=== PATIENT | female | born 1975 | race Caucasian/White ===

== ENCOUNTER → 2021-01-10 00:05 | Outpatient (CLI) | payer OTHER, SELFPAY ==
[2021-01-10 17:14] LABS: SARS-CoV-2 RNA PCR Negative
== END ==
PROVIDERS: PCP Registered Nurse; Visit Provider Internal Medicine Critical Care Medicine
DX: Z01.812 Encounter for preprocedural laboratory examination (principal); Z20.822 Contact with and (suspected) exposure to COVID-19
CPT/HCPCS: C9803; U0003; U0005

== ENCOUNTER 2021-01-12 09:17 | Outpatient (CLI) | payer OTHER, SELFPAY ==
--- NOTE | 2021-02-07 15:49 | WPDSLEEPSTUD ---
Sleep Study Date of Study: 01/12/21 Ordering Provider: Tyree Cabrera DO Interpreting Physician: Lacey Hung MD Sleep Study Type: Split Polysomnogram Height: 1.73 m Weight: 192.777 kg Body Mass Index: 64.6 Neck Circumference (inches): 17 [place]: 9 Reason for Sleep Study known TORRES, problems with mask fit *04/18/2019 Snap HST; AHI 12.9; baseline saturation 94%, lowest desaturation 82%, 90% of the test, 186 minutes of oximetry time spent below 88% saturation Sleep History Mallory Beaver is a 45-year-old female who has obstructive sleep apnea documented on home sleep study from 2019 wiht an AHI 12.9 with severe hypoxemia. She is having problems with mask fit and the pressure. Outpatient attempts to correct problems have not been successful. She has been using 15 cm CPAP. This is the first lab study she has had. she has constant loud snoring that others complain about. She occasionally awakens at night with heartburn, belching or coughing. She constantly awakens from sleep feeling short of breath. She has difficulty falling asleep, she wakes up throughout the night and she has a difficult time waking in the morning. There is a family history with her sister also having sleep apnea. She occasionally has trouble sleep with a cold. She constantly wakes up gasping for breath at night, constantly has breathing problems reported to her by others. She occasionally sweats excessively at night. She does not notice her heart pounding or beating irregularly at night. She constantly falls asleep during the day, occasionally involuntarily, never while driving. She does not have loss of muscle tone with strong emotion. She does not have daytime difficulties due to excessive sleepiness. She does not feel paralyzed on waking or falling asleep. She occasionally has vivid dreamlike scenes upon awakening or falling asleep. She constantly has nightmares, constantly remembers her dreams and has racing thoughts. She constantly feels sad, depressed and anxious. She denies muscular tension. She occasionally notices parts of her body jerking. She occasionally kicks at night. She does not have crawling or aching feelings in her legs. She constantly has leg pain at night. She does not have morning jaw pain. She constantly is bothered by pain during the day. She does not grind her teeth during sleep. She is not awakened by pain at night. She occasionally wakes up feeling stiff in the morning, with sore achy muscles and pain in her spine. She has headaches and insomnia. She takes Tums very often. Normal bedtime is between 3 and 4:00 a.m. waking up around 5-6 a.m.. She says it takes half the night for her to fall asleep. She wakes up once after going to sleep. This is to go urinate and reposition herself. She wakes in the morning between 9:10 a.m.. She takes naps. Sometimes a short nap is refreshing. She is usually drowsy in the morning. She never really feels better throughout the day. Habits: Tobacco half pack per day. Caffeine daily. No alcohol. [facility] Past Medical History Medical History (Updated 02/07/21 @ 16:12 by Lacey Hung MD) Allergic rhinitis with postnasal drip Arthritis Asthma Chronic cough Depression Henoch-Schonlein purpura Hypertension Morbid obesity Obstructive sleep apnea Tobacco abuse Family History Family History (Updated 07/17/18 @ 09:16 by DOCTOR UNKNOWN) Other Diabetes mellitus Family history of arthritis Social History Social History (Updated 02/07/21 @ 16:12 by Lacey Hung MD) Social History: cutting back now under 1 pack a day Smoking packs per day: 2 Smoking cigarettes per day: 40.0 Years smoked: 30 Smoking pack-years: 60.00 Smoking status: Heavy tobacco smoker Medications Medications: albuterol i 2.5 mg Q 6 hours p.r.n. wheezing albuterol inhaler 2 puffs q.4 hours p.r.n. amlodipine 10 mg a day Anoro Ellipta 1 puff daily aspirin EC 81 mg a
[2021-02-07 20:41] VITALS: BMI 64.6
== END 2021-01-12 09:18 | disposition home or self-care (01) ==
LOC: ANHCSM 09:19
PROVIDERS: PCP Registered Nurse
DX: G47.33 Obstructive sleep apnea (adult) (pediatric) (principal); E66.01 Morbid (severe) obesity due to excess calories; Z68.44 Body mass index [BMI] 60.0-69.9, adult; F17.210 Nicotine dependence, cigarettes, uncomplicated
CPT/HCPCS: 95811

== ENCOUNTER 2021-11-06 19:32 | Emergency (ER) | payer OTHER, SELFPAY ==
[2021-11-06 19:36] VITALS: BP 156/65; PULSE 90; RESP 16; TEMP 36.3; O2SAT 96
--- NOTE | 2021-11-06 19:40 | ED.SOB ---
HPI - SOB/Dyspnea General Chief Complaint: Shortness of Breath/Dyspnea Stated Complaint: Shortness of Breath Time Seen by Provider: 11/06/21 19:40 Source: patient and RN notes reviewed History of Present Illness HPI Narrative: Patient is a 46-year-old female who presents the urgent care with complaints of shortness of breath and cough. Patient states that she has been having this issue since 25 October. States that she has had virtual visits with both her certified meeting professional and her doctor. Her certified meeting professional advised her to get on steroids if her symptoms did not improve however he did not prescribe her the medication. Patient was placed on a Z-Willy on 30 October and has completed as of today. Patient denies of any fevers, nausea or chest pain. Patient states that she has inhalers and a nebulizer at home which she has been using with some improvement. Patient states her last nebulizer treatment was at approximately 2:30 PM. Patient has tested negative for COVID 3 times since symptom onset. No other acute complaints. No acute distress noted. Increased visible shortness of breath on exertion. Patient aware of the plan of care. Some parts of this dictation were generated by voice recognition software and may contain typographical and/or grammatical inaccuracies. Related Data Home Medications Medication Instructions Recorded Confirmed amlodipine 10 mg PO DAILY 11/06/21 11/06/21 bupropion HCl 150 mg PO QAM 11/06/21 11/06/21 cholecalciferol (vitamin D3) 125 mcg PO DAILY 11/06/21 11/06/21 [Vitamin D3] fluticasone furoate-vilanterol 1 inh INHALATION Q24H 11/06/21 11/06/21 [Breo Ellipta] hydrochlorothiazide 25 mg PO DAILY 11/06/21 11/06/21 losartan 50 mg PO DAILY 11/06/21 11/06/21 omeprazole 20 mg PO DAILY 11/06/21 11/06/21 Allergies Allergy/AdvReac Type Severity Reaction Status Date / Time No Known Allergies Allergy Verified 11/06/21 19:41 Review of Systems Review of Systems: CONSTITUTIONAL: Denies fever, chills, or sweats. EYES: Denies visual changes, redness, or discharge. ENT: Denies rhinorrhea, congestion, sore throat, or otalgia. CARDIOVASCULAR: Denies chest pain, palpitations, or edema. RESPIRATORY: Reports of cough and increased dyspnea GASTROINTESTINAL: Denies abdominal pain, nausea, vomiting, or diarrhea. GENITOURINARY: Denies dysuria or hematuria. SKIN: Denies rash or itching. MUSCULOSKELETAL: Denies back pain, joint pain, or myalgia. NEUROLOGIC: Denies headache, numbness, or weakness. \ All other systems reviewed are negative, except as documented in HPI. [facility] Past Medical History Medical History (Updated 11/06/21 @ 19:49 by RAE Abel) Allergic rhinitis with postnasal drip Arthritis Asthma Chronic cough Depression Henoch-Schonlein purpura Hypertension Morbid obesity Obstructive sleep apnea Tobacco abuse Family History Family History (Updated 07/17/18 @ 09:16 by DOCTOR UNKNOWN) Other Diabetes mellitus Family history of arthritis Social History Social History (Updated 02/07/21 @ 16:12 by Lacey Hung MD) Social History: cutting back now under 1 pack a day Smoking packs per day: 2 Smoking cigarettes per day: 40.0 Years smoked: 30 Smoking pack-years: 60.00 Smoking status: Heavy tobacco smoker Comments At the time of my signature, I reviewed and agree with the nursing past medical, surgical, social, and family history. There is no relevant family history pertinent to the patient complaint. Exam Narrative: GENERAL: This is a well-nourished, well-developed patient, in no apparent distress. Morbidly obese HEAD: normocephalic, atraumatic. EYES: PERRL. Sclera clear/white. Vision is grossly intact. EARS: External ears normal, auditory canals clear and without drainage, TMs normal without perforation. Hearing grossly intact. NOSE: External nose normal with no obvious nasal discharge, nares without redness, no rhinorrhea. THROAT: Mucous membranes moist, posteri
[2021-11-06] MEDS: predniSONE 20 MG TABLET 60 MG PO (19:51)
== END 2021-11-06 19:57 | disposition home or self-care (01) ==
PROVIDERS: Emergency Provider Nurse Practitioner Family; PCP Registered Nurse
DX: J44.9 Chronic obstructive pulmonary disease, unspecified (principal); M19.90 Unspecified osteoarthritis, unspecified site; I10 Essential (primary) hypertension; G47.33 Obstructive sleep apnea (adult) (pediatric); E66.01 Morbid (severe) obesity due to excess calories; Z68.42 Body mass index [BMI] 45.0-49.9, adult; F17.210 Nicotine dependence, cigarettes, uncomplicated
CPT/HCPCS: 99213; G0463; J7512

== ENCOUNTER 2021-11-15 18:26 | Emergency (ER) | payer OTHER, SELFPAY ==
[2021-11-15 18:29] VITALS: BP 175/69; PULSE 89; RESP 18; TEMP 36.6; O2SAT 95
--- NOTE | 2021-11-15 19:55 | PC.NURSE ---
PT DECIDED THAT SHE DOESN'T WANT TO BE SEEN ANY LONGER. ADVISED TO STAY BUT STATES HER RIDE IS COMING LAKISHA
--- NOTE | 2021-11-15 20:08 | PC.NURSE ---
pt walked out without being seen advised to stay
== END 2021-11-15 22:03 | disposition left against medical advice (07) ==
PROVIDERS: PCP Registered Nurse
DX: J18.9 Pneumonia, unspecified organism (principal)
CPT/HCPCS: 99199

== ENCOUNTER 2024-12-06 10:21 | Outpatient (CLI) | payer BC, SELFPAY ==
[2024-12-06 11:06] LABS: Hematocrit 47.5 % (37.0-47.0); Hemoglobin 15.2 g/dL (12.0-15.0); Mean Corpuscular Hemoglobin 29.7 pg (26-34); Mean Platelet Volume 9.3 fl (7.4-10.4); Platelet Count Result 301 k/mm3 (150-375); Red Blood Count 5.11 M/mm3 (4.2-5.4); Red Cell Distribution Width 14.7 % (11.5-14.5); White Blood Count 14.8 K/mm3 (4.5-10.0)
--- OUTSIDE RECORDS SUMMARY | 2024-12-06 11:12 | XMS_ITS | Encounter Summary ---
Author Organization [facility] Address [address] [place] [id number] Care Team Providers Care Supervisor Files Name Role Phone Frannie Grace Primary Care Provider [phone] Marii Hayes MD Unavailable [phone] Encounter Details Date Type Department Care Team (Late st Contact Info) Description 01/08/2022 ClariFIt Message Enc [facility] Family & Internal Medicine [facility] [address] [place] [phone] Frannie Grace APNP [address] [place] [address] Referral Social History Tobacco Use Types Packs/Day Years Used Date Smoking Tobacco: Every Day Cigarettes 1 30 Smokeless Tobacco: Never Comments:patient stated that her is smoking 15 cigarettes a day Alcohol Use Standard Drinks/Week Comments No 0 (1 standard drink = 0.6 oz pur e alcohol) AUDIT-C Answer Date Recorded Frequency of Alcohol Consumption Never 09/04/2018 Average Number of Drinks Not on file 018 Frequency of Binge Drinking Not on file 06/2018 PHQ-2 Answer Date Recorded PHQ-2 Score - If the patient scores above 3, please move on to questions 3-9 4 09/28/2021 Comments No Sex and Gender Information Value Date Recorded Sex Assigned at Female 12/01/2024 8:03 AM [employer]ACHINE Legal Sex Female 8:08 PM CDT Gender Identity Female 12/20/2021 12:05 PM [employer] Sexual Orientation Not on file COVID-19 Exposure Response Date Recorded In the last 10 days, have yo u been in contact with someone who was confirmed or suspected to have Coronavirus/COVID-19? No / Unsure 12/26/2021 8:36 AM [employer] MACHINE documented as of this encounter Plan of Treatment Upcoming Encounters Date Type Department Care Team (Late st Contact Info) Description 12/07/2024 8:30 AM [employer]ITCHING MACHINE Appointment [facility] [address] [place] [address] Tyree Cabrera DO [address] [facility] [address] [place] [phone] 12/10/2024 8:20 AM [employer] MACHINE Office Visit [facility] Family & Internal Medicine - [address] [phone] Frannie Grace APNP [address] [place] [phone] 01/10/2025 8:[address] [facility] [address] [place] [address] Tyree Cabrera DO [address] [facility] [address] [place] [phone] 07/01/2025 11:00 AM CDT Office Visit [facility] Multispecialty Care - [facility] [address] [facility] [address] [place] [phone] Tyree Cabrera DO [address] [facility] [address] [place] [phone] documented as of this encounter Visit Diagnoses Not on filedocumented in this encounter Additional Health Concerns Infection Onset Date Last Indicated Resolved Time COVID-19 Rule Out 04/26/2022 04/26/2022 05/03/2022 12:32 AM CDT Assessment Noted Time PHQ-9 Depression Total Score: 10 021 9:27 AM [employer] documented as of this encounter Care Teams Supervisor Files Relationship Specialty Start Date End Date Frannie Grace APNP [address] [place] [phone] PCP - General NURSE PRACTITIONER 08/31/18 Marii Hayes MD [address] [place] [id number] Christos Flaker Operator INTERVENTIONAL CARDIOLOGY 09/03/18 documented as of this encounter
--- OUTSIDE RECORDS SUMMARY | 2024-12-06 11:12 | XMS_ITS | Clinical Summary ---
Author Organization [facility] Address [address] [place] [address] Care Team Providers Care Oracle Forms Developer Name Role Phone Frannie Grace Primary Care Provider + Allergies No known active allergies Medications atenolol (TENORMIN) 50 mg tablet 07/21/2017 Active azithromycin (ZITHROMAX) 250 mg tablet 07/05/2017 Active BREO ELLIPTA 100-25 mcg/dose diskus inhaler 06/10/2017 Acti ve traMADol (ULTRAM) 50 mg tablet 08/07/2017 Active albuterol (PROVENTIL,VENTOL IN) 2.5 mg/0.5 mL solution for nebulization 2.5 mg 3 (three) times a day. Active amLODIPine (NORVASC) 10 mg tablet Take 10 mg by mouth daily. Active phentermine 15 mg capsule Take 15 mg by mouth every morning. Active meloxicam (MOBIC) 7.5 mg tablet Take 1 tablet (7.5 mg total) by mouth daily for 14 days 14 tablet 04/13/2024 Active Active Problems Problem Noted Date Diagnosed Date Morbid obesity 08/14/2017 BMI 50.0-59.9, adult 08/14/2017 Encounters Date Type Department Care Team Description 11/08/2024 7:18 AM UNISAW OPERATOR - 11/08/2024 11:59 PM UNISAW OPERATOR Hospital Encounter [address] [address] Elevated liver enzymes Discharge Disposition: Discharge to home or self care 09/27/2024 8:04 AM UNISAW OPERATOR - 09/27/2024 11:59 PM UNISAW OPERATOR Hospital Encounter [address] [address] Encounter for screening mammogram for malignant neoplasm of breast Discharge Disposition: Discharge to home or self care from Last 3 Months Surgical History Surgery Date Site/Laterality Comments COMBINED HYSTEROSCOPY DIAGNOSTIC / D&C TONSILLECTOMY Family History Medical History Relation Name Comments Arthritis Neg Hx Diabetes Neg Hx Heart disease Neg Hx Hypertension Neg Hx Social History Tobacco Use Types Packs/Day Years Used Date Smoking Tobacco: Every Day Cigarettes 1 30 Smokeless Tobacco: Current Alcohol Use Standard Drinks/Week Comments Yes 0 (1 standard drink = 0.6 oz pur e alcohol) Personal Safety Answer Date Recorded Have you ever been in or are you currently in a harmful physical or emotional relationship or is someone making you feel afraid or unsafe? Denies 04/13/2024 Comments No Sex and Gender Information Value Date Recorded Sex Assigned at Not on file Legal Sex Female 3:42 AM UNISAW OPERATOR Gender Identity Not on file Sexual Orientation Not on file Obstetrics History Para Term AB IAB SAB Ectopic Multiple Livin g Live Births 1 1 1 Date Outcome GA Total Labor Labor/2nd/3rd Weight Sex Type Anes PTL Meghana A1 A5 Name Clin Term Last Filed Vital Signs Vital Sign Reading Time Taken Comments Blood Pressure 169/77 04/13/2024 4:53 PM CDT Pulse 77 04/13/2024 4:53 PM CDT Temperature 36.4 C (97.6 F) 04/13/2024 4:53 PM CDT Respiratory Rate 16 04/13/2024 4:53 PM CDT Oxygen Saturation 96% 04/13/2024 4:53 PM CDT Inhaled Oxygen Concentration - - Weight 186 kg (410 lb) 04/13/2024 4:53 PM CDT Height 175.3 cm (5' 9 ) 04/13/2024 4:53 PM CDT Body Mass Index 60.55 04/13/2024 4:53 PM CDT Plan of Treatment Health Maintenance Due Date Last Done Comments Albumin Creatinine Ratio, Urine 1973 Cervical Cancer Screening 1973 Colon Cancer Screening-Colonoscopy 1973 Depression Screening 1973 Hemoglobin A1C 1973 Hepatitis C Screening 1973 eGFR 1973 Dilated Eye Exam 1973 Foot Exam 1973 Regular Well Visit/Exam 18-64 1991 Zoster Vaccine (1 of 2) 2023 Lung Cancer Screening 12/03/2023 09/04/2023 Influenza Vaccine (#1) 2024 Lipid Panel 09/10/2025 09/10/2024 Breast Cancer Screening-Mammogram 09/27/2025 024 DTaP/Tdap/Td Vaccine (5 - Td or Tdap) 05/17/2031 05/17/2021, 01/10/1994, 11/07/1993, Additional history exists Pneumococcal vaccine <65 Completed 08/14/2022 Procedures Procedure Name Priority Date/Time Associated Diagnosis Comments US ABDOMEN LIMITED Schedule Routine, Read Routine (OP Routine) 11/08/2024 7:59 AM UNISAW OPERATOR Elevated liver enzymes SCREENING MAMMOGRAM BILATERAL W AURELIANO Schedule Routine, Read Routine (OP Routine) 09/27/2024 8:28 AM UNISAW OPERATOR Encounter for screening mammogram for malignant neoplasm of breast CT LUNG CANCER SCREENING Schedule Routine, Read Routine (OP Routine) 09/04/2023 4:17 PM UNISAW OPERATOR Nicotine dependence, cigarettes, uncomplicated from Last 3 Months or Most Recently Relevant to Health Maintenance Results * US Abdomen Limited (11/08/2024 7:59 AM UNISAW OPERATOR) Anatomical Region Laterality Modality Abdomen N/A Ultrasound 11/08/2024 12:1 2 PM UNISAW OPERATOR Narrative 11/08/2024 12:18 PM UNISAW OPERATOR EXAM DESCRIPTION: US ABDOMEN LIMITED REASON FOR STUDY: elevated liver enzymes TECHNIQUE: Ultrasound of the right upper quadrant of the abdomen was performed with grayscale and color doppler. COMPARISON: None FINDINGS: PANCREAS: Pancreas is not well seen. LIVER/BILIARY: No intrahepatic ductal dilatation. Generalized increased echogenicity of the hepatic parenchyma. Poor definition of the portal triads. Hepatopetal flow is noted. Common bile duct measures 0.4 cm. GALLBLADDER: Gallstone in the gallbladder neck. Gallstone measures 1.61 cm. No gallbladder wall thickening. Gallbladder wall measures 0.24 cm. RIGHT KIDNEY: Right kidney measures 12.99 cm at its greatest length. No hydronephrosis of the right kidney. IMPRESSION: Fatty infiltration of the liver. Gallstone in the gallbladder neck. No gallbladder wall thickening. No biliary ductal dilatation. THIS IS AN ELECTRONICALLY VERIFIED FINAL REPORT 11/08/2024 12:18 PM - Electronically signed by Roberth MENDOZA: KELLY Report ID: [id number] Reading Location: [id number] Procedure Note MichelleRoberth, DO - 11/08/2024 EXAM DESCRIPTION: US ABDOMEN LIMITED REASON FOR STUDY: elevated liver enzymes TECHNIQUE: Ultrasound of the right upper quadrant of the abdomen wasperformed with grayscale and color doppler. COMPARISON: None FINDINGS: PANCREAS: Pancreas is not well seen. LIVER/BILIARY: No intrahepatic ductal dilatation. Generalized increased echogenicity of the hepatic parenchyma. Poor definition of the portaltriads. Hepatopetal flow is noted. Common bile duct measures 0.4 cm. GALLBLADDER: Gallstone in the gallbladder neck. Gallstone measures 1.61cm. No gallbladder wall thickening. Gallbladder wall measures 0.24 cm. RIGHT KIDNEY: Right kidney measures 12.99 cm at its greatest length. No hydronephrosis of the right kidney. IMPRESSION: Fatty infiltration of the liver. Gallstone in the gallbladder neck. No gallbladder wall thickening. Nobiliary ductal dilatation. THIS IS AN ELECTRONICALLY VERIFIED FINAL REPORT 11/08/2024 12:18 PM - Electronically signed by Roberth MENDOZA: KELLY Report ID: [id number] Reading Location: [id number] Frannie LINDER [facility] [place] [facility]ED[facility] Final Result * Screening Mammogram Bilateral W Aureliano (09/27/2024 8:28 AM UNISAW OPERATOR) Anatomical Region Laterality Modality Breast Bilateral Mammography 09/27/2024 8:55 AM UNISAW OPERATOR Impressions 09/27/2024 8:55 AM UNISAW OPERATOR No evidence of malignancy in either breast. FINAL ASSESSMENT: BI-RADS Category 1: Negative. RECOMMENDATION: Recommend return for annual screening mammogram in 12 months. Electronically signed by: Daron Palacio M.D. Narrative 09/27/2024 8:55 AM UNISAW OPERATOR EXAMINATION: BILATERAL SCREENING MAMMOGRAM COMPARISON: None available, baseline mammogram TECHNIQUE: Full-field 2D and digital breast tomosynthesis (DBT) images were obtained. CAD was utilized. BREAST PARENCHYMAL COMPOSITION: The breasts are almost entirely fatty. FINDINGS: There is no suspicious mass, calcification, or distortion in either breast. Frannie LINDER IMG MAMMO PROCEDURES [facility] al Result * CT Lung Cancer Screening (09/04/2023 4:17 PM UNISAW OPERATOR) Anatomical Region Laterality Modality Chest N/A Computed Tomogra phy 09/05/2023 6:45 AM UNISAW OPERATOR Narrative 09/05/2023 6:57 AM UNISAW OPERATOR EXAM DESCRIPTION: CT LUNG CANCER SCREENING REASON FOR STUDY: Screening CT of the chest in a current smoker with a 30 pack year smoking history. Additional history: Intermittent chest congestion.. TECHNIQUE: Low dose CT scan of the chest was performed without intravenous contrast using helical scanning technique. The exam extends from the lung apices through the lung bases. Automatic exposure control was used as a dose optimization technique. NOTE: This study was performed for the specific purposes of lung cancer screening and is not an alternative to diagnostic chest CT. RADIATION DOSE: CT dose index volume (CTDIvol) = 2.34 mGy COMPARISON: None FINDINGS: SMOKING RELATED LUNG DISEASE: There is a background of mild pulmonary emphysema. Evaluation limited due to a combination of body habitus and low-dose technique. There is mild central bronchial wall thickening noted as can be seen in the setting of chronic bronchitis in current smokers. Mild subpleural reticulation is present. LUNG NODULES: 4 mm nodule right apex series 2, image 21. Juxtapleural 5 mm nodule posterior right upper lobe image 40. Juxtapleural 9 mm nodule anterior right lower lobe image 24. 7 mm nodule posterior right costophrenic sulcus image 255. Peribronchovascular 8 mm nodule central left upper lobe image 75. Additional tiny 1-3 mm bilateral pulmonary nodules. CORONARY ARTERY CALCIFICATION: Present OTHER: There is subsegmental scarring and atelectasis. No pneumonic consolidation. No effusion or pneumothorax. Central airways are patent. Evaluation at the thoracic inlet very limited due to significant beam hardening artifact. There is a borderline enlarged right paratracheal node measuring 1 cm short axis on image number 73 there is a node in the precarinal space measuring 1.3 cm short axis. Evaluation of the kaylah very limited on this examination. There is thickening of the mid and distal esophagus. Consider reflux or esophagitis. The heart is normal in size without pericardial effusion. Calcification at the mitral annulus. There is no thoracic aortic aneurysm. The main pulmonary trunk is enlarged as can be seen with pulmonary artery hypertension. Evaluation of the axillary regions very limited on this study. Included portion of the chest wall is grossly unremarkable. The abdominal compartment is significantly limited in evaluation due to artifact. No definitive abnormality. There is thoracic spondylosis and multilevel degenerative disc disease. There is wedging of the T11 vertebral body, which is chronic IMPRESSION: 1. Bilateral pulmonary nodules including juxtapleural 9 and 7 mm nodules in the right lower lobe and an 8 mm nodule in the peribronchovascular aspect of the central left upper lobe. Three-month follow-up LD CT is recommended. 2. Mild pulmonary emphysema. 3. Mildly enlarged precarinal node and borderline enlarged paratracheal node, reactive versus neoplastic. 4. Coronary artery calcifications. 5. Portions of the field of view are nearly nondiagnostic given the degree of artifact present as a result of a combination of body habitus and low-dose technique Lung-RADS category 4A: Suspicious. Recommendation: Low dose CT of chest in 3 months. THIS IS AN ELECTRONICALLY VERIFIED FINAL REPORT 09/05/2023 6:57 AM - Electronically signed by Reanna Chacon M.D. TW: EFREM Report ID: [id number] Reading Location: [id number] Procedure Note Reanna Chacon MD - 09/05/2023 EXAM DESCRIPTION: CT LUNG CANCER SCREENING REASON FOR STUDY: Screening CT of the chest in a current smoker with a30 pack year smoking history. Additional history: Intermittent chestcongestion.. TECHNIQUE: Low dose CT scan of the chest was performed without intravenous contrast using helical scanning technique. The exam extends from the lung apices through the lung bases. Automatic exposure control was used as adose optimization technique. NOTE: This study was performed for the specific purposes of lung cancer screening and is not an alternative to diagnostic chest CT. RADIATION DOSE: CT dose index volume (CTDIvol) = 2.34 mGy COMPARISON: None FINDINGS: SMOKING RELATED LUNG DISEASE: There is a background of mild pulmonary emphysema. Evaluation limited due to a combination of body habitus and low-dose technique. There is mild central bronchial wall thickening notedas can be seen in the setting of chronic bronchitis in current smokers. Mild subpleural reticulation is present. LUNG NODULES: 4 mm nodule right apex series 2, image 21. Juxtapleural 5 mm nodule posterior right upper lobe image 40.Juxtapleural 9 mm nodule anterior right lower lobe image 24. 7 mm nodule posterior right costophrenic sulcus image 255. Peribronchovascular 8 mm nodule central left upper lobe image 75. Additional tiny 1-3 mm bilateral pulmonary nodules. CORONARY ARTERY CALCIFICATION: Present OTHER: There is subsegmental scarring and atelectasis. No pneumonic consolidation. No effusion or pneumothorax. Central airways are patent. Evaluation at the thoracic inlet very limited due to significant beam hardening artifact. There is a borderline enlarged right paratrachealnode measuring 1 cm short axis on image number 73 there is a node in theprecarinal space measuring 1.3 cm short axis. Evaluation of the kaylah very limited on this examination. There is thickening of the mid and distal esophagus. Consider reflux or esophagitis. The heart is normal in size without pericardial effusion. Calcification at the mitral annulus. There is no thoracic aortic aneurysm. The main pulmonary trunk is enlarged as can beseen with pulmonary artery hypertension. Evaluation of the axillary regionsvery limited on this study. Included portion of the chest wall is grossly unremarkable. The abdominal compartment is significantly limited in evaluation due to artifact. No definitive abnormality. There is thoracic spondylosis and multilevel degenerative disc disease. There is wedging ofthe T11 vertebral body, which is chronic IMPRESSION: 1. Bilateral pulmonary nodules including juxtapleural 9 and 7 mm nodulesin the right lower lobe and an 8 mm nodule in the peribronchovascular aspectof the central left upper lobe. Three-month follow-up LD CT is recommended. 2. Mild pulmonary emphysema. 3. Mildly enlarged precarinal node and borderline enlarged paratracheal node, reactive versus neoplastic. 4. Coronary artery calcifications. 5. Portions of the field of view are nearly nondiagnostic given thedegree of artifact present as a result of a combination of body habitus andlow-dose technique Lung-RADS category 4A: Suspicious. Recommendation: Low dose CT of chest in 3 months. THIS IS AN ELECTRONICALLY VERIFIED FINAL REPORT 09/05/2023 6:57 AM - Electronically signed by Reanna Chacon M.D. TW: EFREM Report ID: [id number] Reading Location: [place] [address] Tyree Cabrera DO [facility] [place]ED[place] Final Result from Last 3 Months or Most Recently Relevant to Health Maintenance Insurance [facility] [employer] CHOICE Care Teams Oracle Forms Developer Relationship Specialty Start Date End Date Frannie Grace PA [address] [place] [id number] PCP - General Nurse Practitioner 03/11/24
--- OUTSIDE RECORDS SUMMARY | 2024-12-06 11:12 | XMS_ITS | Encounter Summary ---
Author Organization [facility] Address [address] [place] [address] Care Team Providers Care Commissioner Conservation Of Resources Name Role Phone Frannie Grace Primary Care Provider [phone] Marii Hayes MD Unavailable [phone] Encounter Details Date Type Department Care Team (Late st Contact Info) Description 01/08/2022 LocalEatst Message Enc [facility] Medical Group Family & Internal Medicine [facility] [address] [place] [address] Frannie Grace APNP [address] [place] [address] Handicap plaque Social History Tobacco Use Types Packs/Day Years [...] Sex Assigned at Female 12/01/2024 8:03 AM MANAGER CAFE Legal Sex Female 8:08 PM CDT Gender Identity Female 12/20/2021 12:05 PM MANAGER CAFE Sexual Orientation Not on file COVID-19 Exposure Response Date Recorded In the last 10 days, have yo u been in contact with someone who was confirmed or suspected to have Coronavirus/COVID-19? No / Unsure 12/26/2021 8:36 AM MANAGER CAFE documented as of this encounter Plan of Treatment Upcoming Encounters Date Type Department Care Team (Late st Contact Info) Description 12/07/2024 8:30 AM MANAGER CAFE Appointment [facility] [address] [place] [address] Tyree Cabrera DO [address] [facility] [address] [place] [address] 12/10/2024 8:20 AM MANAGER CAFE Office Visit [facility] Family & Internal Medicine - [address] [address] Frannie Grace APNP [address] [place] [address] 01/10/2025 8:30 AM CDT Appointment [facility] [address] [place] [address] Tyree Cabrera DO [address] [facility] [address] [place] [address] 07/01/2025 11:00 AM CDT Office Visit [facility] Multispecialty Care - [facility] [address] [place] [phone] Tyree Cabrera DO [address] [facility] [address] [place] [address] documented as of this encounter Visit Diagnoses Not on filedocumented in this encounter Additional Health Concerns Infection Onset Date Last Indicated Resolved Time COVID-19 Rule Out 04/26/2022 04/26/2022 05/03/2022 12:32 AM CDT Assessment Noted Time PHQ-9 Depression Total Score: 10 021 9:27 AM MANAGER CAFE documented as of this encounter Care Teams Commissioner Conservation Of Resources Relationship Specialty Start Date End Date Frannie Grace APNP [address] [place] [address] PCP - General NURSE PRACTITIONER 08/31/18 Marii Hayes MD [address] [place] [phone] Christos Physician Credentialing Specialist INTERVENTIONAL CARDIOLOGY 09/03/18 documented as of this encounter
--- OUTSIDE RECORDS SUMMARY | 2024-12-06 11:12 | XMS_ITS | Encounter Summary ---
Author Organization [facility] Address [address] [place] [address] Care Team Providers Care Refrigeration Systems Installer Name Role Phone Frannie Grace Ignacia MTZ Primary Care Provider Marii Hayes MD Unavailable [phone] Encounter Details Date Type Department Care Team (Late st Contact Info) Description 01/08/2022 [place] Message Enc [facility] Medical [facility] Multispecialty Care - [facility] [address] [place] [phone] Tyree Cabrera DO [address] [place], [place] [phone] Bipap Social History Tobacco Use Types Packs/Day Years [...] Sex Assigned at Female 12/01/2024 8:03 AM DESK LIEUTENANT Legal Sex Female 8:08 PM CDT Gender Identity Female 12/20/2021 12:05 PM DESK LIEUTENANT Sexual Orientation Not on file COVID-19 Exposure Response Date Recorded In the last 10 days, have yo u been in contact with someone who was confirmed or suspected to have Coronavirus/COVID-19? No / Unsure 12/26/2021 8:36 AM DESK LIEUTENANT documented as of this encounter Plan of Treatment Upcoming Encounters Date Type Department Care Team (Late st Contact Info) Description 12/07/2024 8:30 AM DESK LIEUTENANT Appointment [facility] [address] [place] [address] Tyree Cabrera DO [address] [facility] [address] [place] [address] 12/10/2024 8:20 AM DESK LIEUTENANT Office Visit [facility] Family & Internal Medicine - [address] [address] Frannie Grace APNP [address] [place] [address] 01/10/2025 8:30 AM CDT Appointment [facility] [address] [place] [address] Tyree Cabrera DO [address] [facility] [address] [place] [address] 07/01/2025 11:00 AM CDT Office Visit [facility] Multispecialty Care - [address] [place] [address] Tyree Cabrera DO [address] [facility] [address] [place] [address] documented as of this encounter Visit Diagnoses Not on filedocumented in this encounter Additional Health Concerns Infection Onset Date Last Indicated Resolved Time COVID-19 Rule Out 04/26/2022 04/26/2022 05/03/2022 12:32 AM CDT Assessment Noted Time PHQ-9 Depression Total Score: 10 021 9:27 AM DESK LIEUTENANT documented as of this encounter Care Teams Refrigeration Systems Installer Relationship Specialty Start Date End Date Frannie Grace APNP [address] [place] [address] PCP - General NURSE PRACTITIONER 08/31/18 Marii Hayes MD [address] [place] [address] Christos Obedience Trainer INTERVENTIONAL CARDIOLOGY 09/03/18 documented as of this encounter
--- OUTSIDE RECORDS SUMMARY | 2024-12-06 11:12 | XMS_ITS | Encounter Summary ---
Author Organization [facility] Address [address] [place] [address] Care Team Providers Care Research Software Engineer Name Role Phone Frannie Grace Ignacia MTZ Primary Care Provider Marii Hayes MD Unavailable [phone] Encounter Details Date Type Department Care Team (Late st Contact Info) Description 01/08/2022 [place] Recordst Message Enc [facility] Medical Group Multispecialty Care - [facility] [address] [place] [address] Tyree Cabrera DO [address] [facility] [address] [place], [place] [phone] Faustina smith Social History Tobacco Use Types Packs/Day Years [...] Sex Assigned at Female 12/01/2024 8:03 AM DIRECTOR GEOTHERMAL OPERATIONS Legal Sex Female 8:08 PM CDT Gender Identity Female 12/20/2021 12:05 PM DIRECTOR GEOTHERMAL OPERATIONS Sexual Orientation Not on file COVID-19 Exposure Response Date Recorded In the last 10 days, have yo u been in contact with someone who was confirmed or suspected to have Coronavirus/COVID-19? No / Unsure 12/26/2021 8:36 AM DIRECTOR GEOTHERMAL OPERATIONS documented as of this encounter Plan of Treatment Upcoming Encounters Date Type Department Care Team (Late st Contact Info) Description 12/07/2024 8:30 AM DIRECTOR GEOTHERMAL OPERATIONS Appointment [facility] [address] [place] [address] Tyree Cabrera DO [address] [facility] [address] [place] [address] 12/10/2024 8:20 AM DIRECTOR GEOTHERMAL OPERATIONS Office Visit [facility] Family & Internal Medicine - [address] [phone] Frannie Grace, SMITH [address] [place] [address] 01/10/2025 8:30 AM CDT Appointment [facility] Day [facility] [address] [place] [address] Tyree Cabrera [address] [facility] [address] [place] [address] 07/01/2025 11:00 AM CDT Office Visit [facility] Multispecialty Care - [address] [place] [address] Tyree Cabrera DO [address] [facility] [address] [place] [address] documented as of this encounter Visit Diagnoses Not on filedocumented in this encounter Additional Health Concerns Infection Onset Date Last Indicated Resolved Time COVID-19 Rule Out 04/26/2022 04/26/2022 05/03/2022 12:32 AM CDT Assessment Noted Time PHQ-9 Depression Total Score: 10 021 9:27 AM DIRECTOR GEOTHERMAL OPERATIONS documented as of this encounter Care Teams Research Software Engineer Relationship Specialty Start Date End Date Frannie Grace APNP [address] [place] [address] PCP - General NURSE PRACTITIONER 08/31/18 Marii Hayes MD [address] [place] [address] Christos Play Reader INTERVENTIONAL CARDIOLOGY 09/03/18 documented as of this encounter
--- OUTSIDE RECORDS SUMMARY | 2024-12-06 11:12 | XMS_ITS | Encounter Summary ---
Author Organization [facility] Address [address] [place] [address] Care Team Providers Care Die Finisher Forging Name Role Phone Frannie Grace Ignacia MTZ Primary Care Provider Marii Hayes MD Unavailable [phone] Encounter Details Date Type Department Care Team (Late st Contact Info) Description 01/20/2024 Therapy Plan [facility] [address] [place], [place] [id number] Tyree Cabrera DO [address] [facility] [address] [place] [address] Social History Tobacco Use Types Packs/Day Years Used Date Smoking Tobacco: Every Day Cigarettes 0.5 31 Smokeless Tobacco: Never Comments:Provider to anger control counselor Alcohol Use Standard Drinks/Week Comments No 0 (1 standard drink = 0.6 oz pur e alcohol) AUDIT-C Answer Date Recorded Frequency of Alcohol Consumption Never 09/04/2018 Average Number of Drinks Not on file 018 Frequency of Binge Drinking Not on file 06/2018 PHQ-2 Answer Date Recorded Patient Health Questionnaire-2 Score 0 12/11/2023 Comments No Sex and Gender Information Value Date Recorded Sex Assigned at Female 12/01/2024 8:03 AM BUTTON SEWING MACHINE OPERATOR Legal Sex Female 8:08 PM CDT Gender Identity Female 12/20/2021 12:05 PM BUTTON SEWING MACHINE OPERATOR Sexual Orientation Not on file 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 on file Not on file documented as of this encounter Plan of Treatment Upcoming Encounters Date Type Department Care Team (Late st Contact Info) Description 12/07/2024 8:30 AM BUTTON SEWING MACHINE OPERATOR Appointment [facility] [address] [place] [address] Tyree Cabrera DO [facility] [address] [place] [address] 12/10/2024 8:20 AM BUTTON SEWING MACHINE OPERATOR Office Visit [facility] Medical [facility] Family & Internal Medicine - [address] [address] Frannie Grace APNP [address] [place] [address] 01/10/2025 8:30 AM CDT Appointment [facility] [address] [place] [address] Tyree Cabrera DO [address] [facility] [address] [place] [address] 07/01/2025 11:00 AM CDT Office Visit [facility] Multispecialty Care - [address] [place] [address] Tyree Cabrera DO 3 [facility] [address] [place] [address] documented as of this encounter Visit Diagnoses Diagnosis Moderate persistent asthma without complication (HHS/HCC)- Primary Unspecified asthma documented in this encounter Additional Health Concerns Assessment Noted Time PHQ-9 Depression Total Score: 12 023 12:10 PM BUTTON SEWING MACHINE OPERATOR documented as of this encounter Care Teams Die Finisher Forging Relationship Specialty Start Date End Date Frannie Grace APNP [address] [place] [address] PCP - General NURSE PRACTITIONER 08/31/18 Marii Hayes MD [address] [place] [address] Christos Surface Grinding Machine Hand INTERVENTIONAL CARDIOLOGY 09/03/18 documented as of this encounter
--- OUTSIDE RECORDS SUMMARY | 2024-12-06 11:12 | XMS_ITS | Encounter Summary ---
Author Organization [facility] Address [address] [place] [address] Care Team Providers Care Inspector And Tester Name Role Phone Frannie Grace Primary Care Provider Marii Hayes MD Unavailable [phone] Encounter Details Date Type Department Care Team (Late st Contact Info) Description 04/28/2019 Medication Management [facility] Family & Internal Medicine [facility] [address] [place] [address] Frannie Grace APNP [address] [place] [address] Social History Tobacco Use Types Packs/Day Years Used Date Smoking Tobacco: Every Day Smokeless Tobacco: Never Alcohol Use Standard Drinks/Week Comments No 0 (1 standard drink = 0.6 oz pur e alcohol) AUDIT-C Answer Date Recorded Frequency of Alcohol Consumption Never 09/04/2018 Average Number of Drinks Not on file 018 Frequency of Binge Drinking Not on file 06/2018 Comments Unknown Sex and Gender Information Value Date Recorded Sex Assigned at Female 12/01/2024 8:03 AM TOW FEEDER Legal Sex Female 8:08 PM CDT Gender Identity Female 12/20/2021 12:05 PM TOW FEEDER Sexual Orientation Not on file documented as of this encounter Plan of Treatment Upcoming Encounters Date Type Department Care Team (Late st Contact Info) Description 12/07/2024 8:30 AM TOW FEEDER Appointment [facility] [address] [place] [address] Tyree Cabrera DO 3 [facility] [address] [place] [address] 12/10/2024 8:20 AM TOW FEEDER Office Visit [facility] Family & Internal Medicine - [address] [address] Frannie Grace, SMITH [address] [place] [address] 01/10/2025 8:30 AM CDT Appointment [facility] [address] [place] [address] Tyree Cabrera DO 3 [facility] [address] [place] [address] 07/01/2025 11:00 AM CDT Office Visit [facility] Multispecialty Care - [facility] 3 [facility] [address] [place] [address] Tyree Cabrera DO 3 [facility] [address] [place] [address] documented as of this encounter Visit Diagnoses Not on filedocumented in this encounter Additional Health Concerns Infection Onset Date Last Indicated Resolved Time COVID-19 Rule Out 11/03/2020 11/03/2020 11/04/2020 2:52 PM TOW FEEDER COVID-19 Rule Out 10/29/2021 10/29/2021 10/30/2021 1:38 AM TOW FEEDER COVID-19 Rule Out 04/26/2022 04/26/2022 05/03/2022 12:32 AM CDT documented as of this encounter Care Teams Inspector And Tester Relationship Specialty Start Date End Date Frannie Grace APNP [address] [place] [address] PCP - General NURSE PRACTITIONER 08/31/18 Marii Hayes MD [address] [place] [address] Christos Summer Camp Counselor INTERVENTIONAL CARDIOLOGY 09/03/18 documented as of this encounter
--- OUTSIDE RECORDS SUMMARY | 2024-12-06 11:12 | XMS_ITS | Encounter Summary ---
Author Organization [facility] Address Formerly [facility] [place] [address] Care Team Providers Care Aviation Safety Equipment Technician Name Role Phone Frannie Grace Ignacia MTZ Primary Care Provider Marii Hayes MD Unavailable [phone] Encounter Details Date Type Department Care Team (Latest Contact Info) Description 06/18/[address] [facility] Multispecialty Care - [facility] [address] [facility] [address] [place] [address] Tyree Cabrera DO [address] [facility] [address] [place], [place] [id number] Having trouble getting medication Social History Tobacco Use Types Packs/Day Years Used Date Smoking Tobacco: Every Day Cigarettes 1 30 Smokeless Tobacco: Never Comments:Provider to patient financial counselor Alcohol Use Standard Drinks/Week Comments No 0 (1 standard drink = 0.6 oz pur e alcohol) AUDIT-C Answer Date Recorded Frequency of Alcohol Consumption Never 09/04/2018 Average Number of Drinks Not on file 018 Frequency of Binge Drinking Not on file 06/2018 PHQ-2 Answer Date Recorded Patient Health Questionnaire-2 Score 2 12/11/2022 Comments No Sex and Gender Information Value Date Recorded Sex Assigned at Female 12/01/2024 8:03 AM CUTTER DOWN Legal Sex Female 8:08 PM CDT Gender Identity Female 12/20/2021 12:05 PM CUTTER DOWN Sexual Orientation Not on file 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 on file Not on file documented as of this encounter Plan of Treatment Upcoming Encounters Date Type Department Care Team (Late st Contact Info) Description 12/07/2024 8:30 AM CUTTER DOWN Appointment [facility] [address] [place] [address] Tyree Cabrera DO [address] [facility] [address] [place] [address] 12/10/2024 8:20 AM CUTTER DOWN Office Visit [facility] Family & Internal Medicine - [address] [address] Frannie Grace APNP [address] [place] [address] 01/10/2025 8:30 AM CDT Appointment [facility] [address] [place] [address] Tyree Cabrera DO [address] [facility] [address] [place] [address] 07/01/2025 11:00 AM CDT Office Visit [facility] Multispecialty Care - [facility] [address] [facility] [address] [place] [phone] Tyree Cabrera DO [address] [facility] [address] [place] [address] documented as of this encounter Visit Diagnoses Not on filedocumented in this encounter Additional Health Concerns Assessment Noted Time PHQ-9 Depression Total Score: 12 023 12:10 PM CUTTER DOWN documented as of this encounter Care Teams Aviation Safety Equipment Technician Relationship Specialty Start Date End Date Frannie Grace APNP [address] [place] [address] PCP - General NURSE PRACTITIONER 08/31/18 Marii Hayes MD [address] [place] [id number] Christos Vat Washer INTERVENTIONAL CARDIOLOGY 09/03/18 documented as of this encounter
--- OUTSIDE RECORDS SUMMARY | 2024-12-06 11:12 | XMS_ITS | Clinical Summary ---
Author Organization [facility] Address [address] [place] [address] Care Team Providers Care Shrimping Boat Captain Name Role Phone Lesly, Frannie Ignacia MTZ Primary Care Provider [phone] Marii Hayes MD Unavailable [phone] Allergies No known active allergies Medications CPAP MACHINEIndication s:pt states that she uses a bipap Indications: pt states that she uses a bipap Active ferrous sulfate, 65 mg elemental, 325 (65 FE) MG tablet Take 1 tablet (325 mg total) by mouth daily with breakfast. Active polycarbophil 625 MG tablet Take 1 tablet (625 mg total) by mouth daily. Active vitamin C 1000 MG tablet Take 1 tablet (1,000 mg total) by mouth daily. Active EPINEPHrine (EPIPEN 2-RUTHIE) 0.3 MG/0.3ML injectionIndicati ons:Moderate persistent asthma without complication (HHS/HCC) Inject 0.3 mLs (0.3 mg total) into the muscle as needed for Anaphylaxis. 1 each 022 Active albuterol sulfate HFA (PROAIR HFA) 108 (90 Base) MCG/ACT inhalerIndication s:Moderate persistent asthma without complication (HHS/HCC) Inhale 2 puffs into the lungs every 4 (four) hours as needed. 18 g 2 023 Active albuterol (ACCUNEB) 1.25 MG/3ML nebulizer solutionIndicatio ns:Moderate persistent asthma without complication (HHS/HCC) Take 3 mLs (1.25 mg total) by nebulization every 6 (six) hours as needed for Wheezing. 720 mL 2 023 Active fluticasone propionate (FLONASE) 50 MCG/ACT nasal sprayIndications: Allergic rhinitis due to pollen, unspecified seasonality 1 spray by Nasal route daily. 16 g 6 023 Active benralizumab (FASENRA) 30 MG/ML Solution Prefilled Syringe injectionIndicati ons:Moderate persistent asthma without complication (HHS/HCC) Inject 1 mL (30 mg total) into the skin Once every eight weeks. 0.28 mL 11 024 Active traMADol (ULTRAM) 50 MG tabletIndications :Chronic Pain Take 1 tablet (50 mg total) by mouth every 6 (six) hours as needed for Pain. Indications: Chronic Pain 30 tablet 024 Active montelukast (SINGULAIR) 10 MG tabletIndications :Moderate persistent asthma without complication (HHS/HCC),Simple chronic bronchitis (CMS/HCC HHS/HCC),Allergic rhinitis due to pollen, unspecified seasonality TAKE 1 TABLET BY MOUTH EVERYDAY AT BEDTIME 90 tablet 2 024 Active TRELEGY ELLIPTA 200-62.5-25 MCG/ACT AEROSOL POWDER, BREATH ACTIVATEDIndicati ons:Moderate persistent asthma without complication (HHS/HCC),Chronic respiratory failure, unspecified whether with hypoxia or hypercapnia (CMS/HCC HHS/HCC),Simple chronic bronchitis (CMS/HCC HHS/HCC) INHALE 1 PUFF INTO THE LUNGS DAILY 60 each 2 024 Active tirzepatide (MOUNJARO) 2.5 MG/0.5ML injectionIndicati ons:Diabetes Mellitus Inject 2.5 mg into the skin every 7 days. Indications: Diabetes 2 mL 2 024 Active omeprazole (PRILOSEC) 20 MG capsuleIndication s:Gastroesophagea l reflux disease without esophagitis TAKE 1 CAPSULE BY MOUTH EVERY DAY 90 capsule 1 024 Active venlafaxine XR (EFFEXOR-XR) 75 MG 24 hr capsuleIndication s:Moderate episode of recurrent major depressive disorder (CMS/HCC HHS/HCC) Take 1 capsule (75 mg total) by mouth daily. 90 capsule 025 Active vitamin D3 (CHOLECALCIFEROL) 1.25 mg capsuleIndication s:Vitamin D deficiency TAKE ONE CAPSULE BY MOUTH ONCE WEEKLY FOR 12 WEEKS 12 capsule 025 Active amLODIPine (NORVASC) 5 MG tabletIndications :Primary hypertension TAKE 1 TABLET (5 MG TOTAL) BY MOUTH DAILY. 90 tablet 3 025 Active losartan (COZAAR) 100 MG tabletIndications :Primary hypertension TAKE 1 TABLET BY MOUTH EVERY DAY 90 tablet 3 025 Active rosuvastatin (CRESTOR) 10 MG tabletIndications :Mixed hyperlipidemia TAKE 1 TABLET BY MOUTH EVERYDAY AT BEDTIME 90 tablet 1 025 Active hydroCHLOROthiazi de (HYDRODIURIL) 25 MG tabletIndications :Essential hypertension TAKE 1 TABLET BY MOUTH EVERY DAY IN THE MORNING 90 tablet 025 Active rosuvastatin (CRESTOR) 10 MG tabletIndications :Mixed hyperlipidemia Take 1 tablet (10 mg total) by mouth nightly at bedtime. 90 tablet 1 024 2024 Discontinued cholecalciferol (D3-50) 1.25 mg capsuleIndication s:Vitamin D deficiency TAKE ONE CAPSULE ONCE WEEKLY FOR 12 WEEKS 12 capsule 3 024 2024 Discontinued amLODIPine (NORVASC) 5 MG tabletIndications :Primary hypertension Take 1 tablet (5 mg total) by mouth daily. 90 tablet 3 024 2024 Discontinued losartan (COZAAR) 100 MG tabletIndications :Primary hypertension Take 1 tablet (100 mg total) by mouth daily. 90 tablet 3 024 2024 Discontinued hydroCHLOROthiazi de (HYDRODIURIL) 25 MG tabletIndications :Essential hypertension take 1 tablet by mouth every day in the morning 90 tablet 1 024 2024 Discontinued Active Problems Problem Noted Date Diagnosed Date Moderate persistent asthma ([facility]) 01/20/2024 Mixed hyperlipidemia 12/11/2022 TORRES on CPAP 10/13/2020 Tobacco abuse disorder 10/13/2020 Anxiety 2020 Osteoarthritis of both knees , unspecified osteoarthritis type 12/02/2019 Chronic pain of both knees 12/02/2019 Chronic bronchitis ([facility]/HCC [facility]) 05/12/2019 Cigarette nicotine dependence without complicati on 03/10/2019 SOBOE (shortness of breath on exertion) 08/31/20 18 Eczema 07/01/2018 Pain in hand 03/31/2018 Allergic rhinitis 02/10/2018 Amenorrhea 01/13/2018 Left ankle pain 08/07/2017 Cough 07/04/2017 BMI 60.0-69.9, adult ([facility]) 7 Vitamin D deficiency 02/05/2017 Asthma ([facility]) 01/28/2017 Polyarthralgia 01/12/2017 Carpal tunnel syndrome 07/20/2015 Insomnia 07/20/2015 HTN (hypertension) 07/20/2015 Short of breath on exertion Hypertension Depression Morbid obesity ([facility]) Arthritis Resolved Problems Problem Noted Date Diagnosed Date Resolved Date Depression 01/27/2018 03/10/2019 Screening, lipid 01/13/2018 07/07/2020 Screening for endocrine, met abolic and immunity disorder 01/13/2018 07/07/2020 BMI 50.0-59.9, adult ([facility]) 08/14/2017 03/10/2019 Left ankle sprain 06/20/2017 2020 BMI 50.0-59.9, adult ([facility]) 02/24/2017 03/10/2019 Encounter for preventive health examination 07/19/2015 07/07/2020 Pre-operative clearance 02/24 Encounters Date Type Department Care Team Description 12/02/2024 7:20 AM FINANCIAL ASSOCIATE Office Visit [facility] Multispecialty Care - [address], [address] [place] [id number] Tyree Cabrera, DO Follow Up 12/02/2024 Travel 12/01/2024 Telephone [facility] Family & Internal Medicine [address] [address] Frannie Grace APNP Error 11/25/2024 Telephone [facility] Family & Internal Medicine [address] [address] Frannie Grace APNP Prior Authorization (Venlafaxine ER 75mg tablets.) 11/15/2024 8:30 AM FINANCIAL ASSOCIATE - 11/15/2024 9:07 AM FINANCIAL ASSOCIATE Hospital Encounter [facility] [address] [place] [address] Tyree Cabrera, DO Discharge Disposition: Home or Self Care (Routine Discharge) 11/15/[address] [address] Frannie Grace APNP Ultrasound (Abdominal ultrasound/) 11/15/2024 Travel 11/09/[address] [address] Frannie Grace APNP Prior Authorization (Venlafaxine ER 75mg ) 11/08/2024 Scan [facility] Scanned, [facility] Ultrasound (SCAN) 10/04/[address] [address] Frannie Grace APNP Radiology Results ([facility]ammogram[facility] 09/27/24) 09/27/2024 Scan [facility] Scanned, [facility] Mammogram (SCAN) 09/21/2024 10:40 AM FINANCIAL ASSOCIATE Office Visit [address] [address] Frannie Grace APNP Depression; Diabetes (New onset ) 09/21/[address] [address] Frannie Grace APNP Prior Authorization (Mounjaro 2.5mg) 09/21/2024 Travel 09/20/2024 8:24 AM FINANCIAL ASSOCIATE - 09/20/2024 9:00 AM FINANCIAL ASSOCIATE Hospital Encounter [facility] [address] [place] [address] Tyree Cabrera, DO Discharge Disposition: Home or Self Care (Routine Discharge) 09/20/2024 Travel 09/15/2024 Telephone [facility] Family & Internal Medicine [address] [address] Frannie Grace APNP Lab Results 09/13/2024 Telephone [facility] [address] [place] [address] Tyree Cabrera DO Orders 09/10/2024 10:00 AM FINANCIAL ASSOCIATE Office Visit [facility] Family & Internal Medicine [address] [address] Frannie Grace APNP Pain Medication Agreement; Hypertension; Hyperlipidemia 09/10/2024 Travel from Last 3 Months Immunizations Name Administration Dates Next Due Dtp 01/10/1994,11/07/1993,09/24/1993 Hepatitis B Pediatric 09/24/1993,03/12/1993 Hib 01/10/1994,11/07/1993,09/24/1993 Opv 01/10/1994,11/07/1993,09/24/1993 Pneumococcal (Prevnar 20) 08/14/2022 Tdap (Adacel) 05/17/2021 Family History Medical History Relation Comments Diabetes Father Heart Attack Father Hypertension Father Open Heart Father Stent Cardiac Father aaa Father cardiac disorder Father Diabetes Mother Diabetes Sister 1 Stent Cardiac Sister 1 Heart Attack Sister 2 Stent Cardiac Sister 2 Relation Status Comments Father Mother Alive Sister 1 Alive Sister 2 Alive Social History Tobacco Use Types Packs/Day Years Used Date Smoking Tobacco: Every Day Cigarettes 0.5 31.2 Started: 09/21/1993 Smokeless Tobacco: Never Tobacco Cessation:Ready to Q uit: Not Asked; Counseling Given: Yes Comments:Provider to evp general counsel Alcohol Use Standard Drinks/Week Comments No 0 (1 standard drink = 0.6 oz pur e alcohol) AUDIT-C Answer Date Recorded Frequency of Alcohol Consumption Never 09/04/2018 Average Number of Drinks Not on file 018 Frequency of Binge Drinking Not on file 06/2018 PHQ-2 Answer Date Recorded Patient Health Questionnaire-2 Score 2 09/21/2024 Comments No Sex and Gender Information Value Date Recorded Sex Assigned at Female 12/01/2024 8:03 AM FINANCIAL ASSOCIATE Legal Sex Female 8:08 PM CDT Gender Identity Female 12/20/2021 12:05 PM FINANCIAL ASSOCIATE Sexual Orientation Not on file 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 on file Not on file Last Filed Vital Signs Vital Sign Reading Time Taken Comments Blood Pressure 90/56 12/02/2024 7:22 AM FINANCIAL ASSOCIATE Pulse 71 12/02/2024 7:22 AM FINANCIAL ASSOCIATE Temperature 36.2 C (97.1 F) 12/02/2024 7:22 AM FINANCIAL ASSOCIATE Respiratory Rate 18 12/02/2024 7:22 AM FINANCIAL ASSOCIATE Oxygen Saturation 93% 12/02/2024 7:22 AM FINANCIAL ASSOCIATE RA Inhaled Oxygen Concentration - - Weight 174.6 kg (385 lb) 12/02/2024 7:22 AM FINANCIAL ASSOCIATE Height 172.7 cm (5' 8 ) 12/02/2024 7:22 AM FINANCIAL ASSOCIATE Body Mass Index 58.54 12/02/2024 7:22 AM FINANCIAL ASSOCIATE Plan of Treatment Upcoming Encounters Date Type Department Care Team (Late st Contact Info) Description 12/07/2024 8:30 AM FINANCIAL ASSOCIATE Appointment [facility] [address] [place] [address] Tyree Cabrera DO [address] [facility] [address] [place] [address] 12/10/2024 8:20 AM FINANCIAL ASSOCIATE Office Visit [facility] Medical Group Family & Internal Medicine - [place] [address] [place] [address] Frannie Grace APNP [address] [place] [address] 01/10/2025 8:30 AM CDT Appointment Health system Day [facility] [address] [place] [address] Tyree Cabrera, 3 [facility] [address] [place] [address] 07/01/2025 11:00 AM CDT Office Visit [facility] Medical Group Multispecialty Care - [facility] [address] [facility] [address] [facility] [place] [phone] Tyree Cabrera DO [address] [facility] [address] [place] [address] Health Maintenance Due Date Last Done Comments Cervical Cancer Screening Pap Smear (Age 30 to 64) Every 3 Years 1973 Kidney Health Evaluation 1973 Diabetes: Retinopathy Eye Exam 1991 Hepatitis C 1991 Cervical Cancer Screening Pap with HPV Testing (Age 30 to 64) Every 5 Years 2003 Cervical Cancer Screening with HPV 2003 Annual Physical 05/17/2022 05/17/2021 PHQ-2 (Physician Dorris) 10/27/2024 09/21/2024 Hemoglobin A1C 03/10/2025 09/10/2024, 02/0 04/2024, 09/05/2022, Additional history exists COVID-19 Vaccine ( season) 2025 Postponed from 06/27/2024 (Patient Refused) Hepatitis B Vaccines (2 of 3 - 19+ 3-dose series) 09/10/2025 09/24/1993, 03/12/1993 Postponed from 10/22/1993 (Patient/Guardian Refusal) Influenza Adult (#1) 2025 Postpon ed from 07/27/2024 (Patient Refused) Lipid Panel 09/10/2025 09/10/2024, 020 11/2023, 09/05/2022, Additional history exists Zoster Vaccines (1 of 2) 09/10/2025 Pos tponed from 2023 (Patient Refused) Mammogram Screening 09/27/2026 09/27/2024, Colorectal Cancer Screening Colonoscopy (10 Years) 01/02/2030 01/03/2020 DTaP, Tdap and Td Vaccines (2 - Td or Tdap) 05/17/2031 05/17/2021, 01/10/1994, 11/07/1993, Additional history exists Pneumococcal Vaccine: Pediatrics (0 to 5 Years) and At-Risk Patients (6 to 64 Years) Completed 08/14/2022 Meningococcal B Vaccine Aged Out No l onger eligible based on patient's age to complete this topic Meningococcal Vaccine Aged Out No eric tara eligible based on patient's age to complete this topic RSV Immunizations Under 20 Months Aged Out No longer eligible based on patient's age to complete this topic Procedures Procedure Name Priority Date/Time Associated Diagnosis Comments ULTRASOUND GENERIC (SCAN ORDER) 11/08/2024 MAMMOGRAM GENERIC (SCAN ORDER) 09/27/2024 CBC W/DIFF AUTOMATED Routine 09/10/2024 1:29 PM FINANCIAL ASSOCIATE BMI 60.0-69.9, adult ([facility]) HEMOGLOBIN, GLYCOSYLATED Routine 09/10/2024 1:29 PM FINANCIAL ASSOCIATE Hyperglycemia COMPREHENSIVE METABOLIC PANEL Routine 09/10/2024 1:29 PM FINANCIAL ASSOCIATE Primary hypertension LIPID PANEL Routine 09/10/2024 1:29 PM FINANCIAL ASSOCIATE Mixed hyperlipidemia VITAMIN D, 25 OH Routine 09/10/2024 1:29 PM FINANCIAL ASSOCIATE Vitamin D deficiency COLLECTION VENOUS BLOOD VENIPUNCTURE Routine 09/10/2024 10:37 AM FINANCIAL ASSOCIATE Hyperglycemia Primary hypertension Mixed hyperlipidemia BMI 60.0-69.9, adult ([facility]) from Last 3 Months Results * ULTRASOUND GENERIC (SCAN ORDER) (11/08/2024) Anatomical Region Laterality Modality Other 11/08/2024 [employer] [facility] Scanned SCANNING Final Resu lt * MAMMOGRAM GENERIC (SCAN ORDER) (09/27/2024) Anatomical Region Laterality Modality Other 09/27/2024 [employer] [facility] Scanned SCANNING Final Resu lt * (ABNORMAL) HEMOGLOBIN, GLYCOSYLATED (09/10/2024 1:29 PM FINANCIAL ASSOCIATE) HGB A1C 7.0(H) 4.5 - 6.2 % 09/10/2024 7:53 PM FINANCIAL ASSOCIATE [facility] ESTIMATED AVG GLUCOSE 154(H) 74 - 106 MG/DL 09/10/2024 7:53 PM FINANCIAL ASSOCIATE [facility] 09/10/2024 1:29 PM FINANCIAL ASSOCIATE Frannie MTZ LABORATORY Final Resul t [facility] [address] [place] [address], * (ABNORMAL) COMPREHENSIVE METABOLIC PANEL (09/10/2024 1:29 PM FINANCIAL ASSOCIATE) Pathologist [facility] SODIUM S/P/B 138 136 - 145 MMOL/L 09/10/2024 8:14 PM FINANCIAL ASSOCIATE [facility] POTASSIUM S/P/B 3.7 3.5 - 5.1 MMOL/L 09/10/2024 8:14 PM FINANCIAL ASSOCIATE [facility] CHLORIDE S/P/B 100 98 - 107 MMOL/L 09/10/2024 8:14 PM FINANCIAL ASSOCIATE [facility] CO2 31.9 21 - 32 MMOL/L 09/10/2024 8:14 PM FINANCIAL ASSOCIATE [facility] GLUCOSE 136(H) 70 - 99 MG/DL 09/10/2024 8:14 PM FINANCIAL ASSOCIATE [facility] BUN 11 7 - 18 MG/DL 09/10/2024 8:14 PM FINANCIAL ASSOCIATE [facility] CREATININE S/P/B 0.72 0.55 - 1.02 MG/DL 09/10/2024 8:14 PM FINANCIAL ASSOCIATE [facility] CALCIUM S/P/B 9.7 8.4 - 10.5 MG/DL 09/10/2024 8:14 PM FINANCIAL ASSOCIATE [facility] BILIRUBIN TOTAL S/P/B 0.5 0.2 - 1.0 MG/DL 09/10/2024 8:14 PM [facility] ALKALINE PHOSPHATASE S/P/B 132(H) 41 - 108 U/L 09/10/2024 8:14 PM [facility] AST 55(H) 15 - 37 U/L 09/10/2024 8:14 PM [facility] ALT 34 14 - 59 U/L 09/10/2024 8:14 PM [facility] TOTAL PROTEIN S/P/B 7.0 6.4 - 8.2 G/DL 09/10/2024 8:14 PM [facility] ALBUMIN S/P/B 3.1(L) 3.4 - 5.0 G/DL 09/10/2024 8:14 PM [facility] ANION GAP 6.1 5 - 15 MMOL/L 09/10/2024 8:14 PM [facility] Comment:REFERENCE RANGE NOT ESTABLISHED OSMOLALITY (CALC) 287 MOSM/KG 024 8:14 PM [facility] Comment:REFERENCE RANGE NOT ESTABLISHED GFR ESTIMATE >90 >90 ML/MIN/1. 73 M2 09/10/2024 8:14 PM [facility] GFR NOTES GFR REFERENCE S: 09/10/2024 8:14 PM [facility] Comment: THE ESTIMATED GFR IS CALCULATED USING THE 2020 CKD-EPI EQUATION. THE FOLLOWING CATEGORIES FOR GRADING RENAL FUNCTION ARE RECOMMENDED BY THE INTERNATIONAL SOCIETY OF NEPHROLOGY (KDIGO 2012 CLINICAL PRACTICE GUIDELINE). G1,NORMAL OR HIGH: >89 ml/min/1.73 m2 G2,MILDLY DECREASED: 60-89 ml/min/1.73 m2 G3A,MILDLY TO MODERATELY DECREASED: 45-59 ml/min/1.73 m2 G3B,MODERATELY TO SEVERELY DECREASED: 30-44 ml/min/1.73 m2 G4,SEVERELY DECREASED: 15-29 ml/min/1.73 m2 G5,KIDNEY FAILURE: <15 ml/min/1.73 m2 09/10/2024 1:29 PM FINANCIAL ASSOCIATE us Frannie MTZ LABORATORY Final Resul t Performing Organization Address City/[facility]/ZIP Co de Phone Number SIL JULIA, AMARILLO [address] [place] [address], [place] [phone] * (ABNORMAL) LIPID PANEL (09/10/2024 1:29 PM FINANCIAL ASSOCIATE) CHOLESTEROL 137 <200 MG/DL 09/10/2024 8:14 PM FINANCIAL ASSOCIATE [facility] TRIGLYCERIDES 118 <150 MG/DL 09/10/2024 8:14 PM FINANCIAL ASSOCIATE [facility] HDL 39(L) >40 MG/DL 09/10/2024 8:14 PM FINANCIAL ASSOCIATE [facility] LDL-C 74 <100 MG/DL 09/10/2024 8:14 PM FINANCIAL ASSOCIATE [facility] VLDL CALCULATION 24 5 - 28 MG/DL 09/10/2024 8:14 PM FINANCIAL ASSOCIATE [facility] CHOL/HDL RATIO 3.5 0.0 - 4.0 09/10/2024 8:14 PM FINANCIAL ASSOCIATE [facility] LDL/HDL 1.9 0.41 - 2.13 09/10/2024 8:14 PM FINANCIAL ASSOCIATE [facility] NON HDL CHOLESTEROL 98 <140 MG/DL 09/10/2024 8:14 PM FINANCIAL ASSOCIATE [facility] 09/10/2024 1:29 PM FINANCIAL ASSOCIATE us Frannie MTZ LABORATORY Final Resul t Performing Organization Address City/[facility]/ZIP Co de Phone Number SIL ARAUJOHUAbdiel AMARILLO [address] [place] [address], [place] [phone] * (ABNORMAL) CBC W/DIFF AUTOMATED (09/10/2024 1:29 PM FINANCIAL ASSOCIATE) [facility] WBC 11.64(H) 4.00 - 10.80 x10'3/uL 09/10/2024 7:24 PM [facility] RBC 5.02 4.10 - 5.40 x10'6/uL 09/10/2024 7:24 PM [facility] HGB 14.8 12.0 - 16.0 G/DL 09/10/2024 7:24 PM [facility] HCT 45.5 36.0 - 47.0 % 09/10/2024 7:24 PM [facility] MCV 90.6 78.0 - 100.0 FL 09/10/2024 7:24 PM [facility] MCH 29.5 27.0 - 31.0 PG 09/10/2024 7:24 PM [facility] MCHC 32.5(L) 33.0 - 36.0 G/DL 09/10/2024 7:24 PM [facility] RDW 14.1 11.5 - 14.5 % 09/10/2024 7:24 PM [facility] PLT 365(H) 150 - 350 x10'3/uL 09/10/2024 7:24 PM [facility] MPV 9.5 7.4 - 10.4 FL 09/10/2024 7:24 PM [facility] DIFFERENTIAL TYPE AUTOMATED DIFFERENTIAL 09/10/2024 7:24 PM [facility] NEUTROPHILS % 72.5 % 09/10/2024 7:24 PM [facility] LYMPHOCYTES % 22.4 % 09/10/2024 7:24 PM [facility] MONOCYTES % 4.6 % 09/10/2024 7:24 PM [facility] EOSINOPHILS % 0.0 % 09/10/2024 7:24 PM [facility] BASOPHILS % 0.2 % 09/10/2024 7:24 PM FINANCIAL ASSOCIATE [facility] IMMATURE GRANS % 0.3 % 09/10/2024 7:24 PM FINANCIAL ASSOCIATE [facility] ABS. NEUTROPHILS 8.43(H) 1.60 - 8.30 x10'3/uL 09/10/2024 7:24 PM FINANCIAL ASSOCIATE [facility] ABS. LYMPHOCYTES 2.61 0.80 - 4.70 x10'3/uL 09/10/2024 7:24 PM FINANCIAL ASSOCIATE [facility] ABS. MONOCYTES 0.54 0.00 - 1.50 x10'3/uL 09/10/2024 7:24 PM FINANCIAL ASSOCIATE [facility] ABS. EOSINOPHILS 0.00 0.00 - 0.40 x10'3/uL 09/10/2024 7:24 PM FINANCIAL ASSOCIATE [facility] ABS. BASOPHILS 0.02 0.00 - 0.20 x10'3/uL 09/10/2024 7:24 PM FINANCIAL ASSOCIATE [facility] ABS. IMMATURE GRANULOCYTES 0.04(H) 0.00 - 0.03 x10'3/uL 09/10/2024 7:24 PM FINANCIAL ASSOCIATE [facility] 09/10/2024 1:29 PM FINANCIAL ASSOCIATE us Frannie MTZ LABORATORY Final Resul t [facility] [address] [place] [address], * VITAMIN D 25 OH ([facility] ONLY) (09/10/2024 1:29 PM FINANCIAL ASSOCIATE) VITAMIN D 25 HYDROXY TOTAL S/P/B 80.4 30 - 100 NG/ML 09/10/2024 8:14 PM FINANCIAL ASSOCIATE [facility] Comment: DEFICIENT <20 INSUFFICIENT 20-30 SUFFICIENT 30-100 09/10/2024 1:29 PM FINANCIAL ASSOCIATE Frannie MTZ LABORATORY Final Resul t [facility] [address] [place] [address], [place] [phone] from Last 3 Months Insurance [facility] Care Teams Shrimping Boat Captain Relationship Specialty Start Date End Date Frannie Grace APNP [address] [place] [address] PCP - General NURSE PRACTITIONER 08/31/18 Marii Hayes MD [address] [place] [address] Christos Experimental Worker INTERVENTIONAL CARDIOLOGY 09/03/18
--- OUTSIDE RECORDS SUMMARY | 2024-12-06 11:12 | XMS_ITS | Clinical Summary ---
Author Organization [facility] Address [address] [place] [address] Phone Care Team Providers Care Coffee Sampler Name Role Phone Provider, Not On File Primary Care Provider Unav ailable Social History Tobacco Use Types Packs/Day Years Used Date Smoking Tobacco: Never Assessed Comments Unknown Sex and Gender Information Value Date Recorded Sex Assigned at Not on file Legal Sex Female 10:10 AM CDT Gender Identity Not on file Sexual Orientation Not on file Plan of Treatment Health Maintenance Due Date Last Done Comments Hepatitis C Virus (HCV) Screening 1973 TdaP Immunization 1973 Hepatitis B Immunization (1 of 3 - 19+ 3-dose series) 1992 Pap Smear 1994 Cervical Cancer Screening (CCS) 2003 HPV/Cotest 2003 Colonoscopy 2018 Colorectal Cancer Screening 2018 Cologuard 2023 Immunochemical Fecal Occult Blood 2023 Mammogram 2023 Pneumococcal Immunization (5 0+ years) (1 of 1 - PCV) 2023 Zoster Immunization (1 of 2) 2023 Influenza Immunization (#1) 2024 SARS-COV-2 Immunization (1 - 2023- season) 2024 Respiratory Syncytial Virus (RSV) Immunization (Adult) (1 - 1-dose 75+ series) 2048 Meningococcal Immunization (ACWY) Aged Out No longer eligible based on patient's age to complete this topic Pneumococcal Immunization Combined Aged Out No longer eligible based on patient's age to complete this topic Rotavirus Immunization Aged Out No lo nger eligible based on patient's age to complete this topic Care Teams Coffee Sampler Relationship Specialty Start Date End Date Provider, Not On File [place] PCP - General 01/15/18
--- OUTSIDE RECORDS SUMMARY | 2024-12-06 11:12 | XMS_ITS | Encounter Summary ---
Author Organization [facility] Address [address] [place] [address] Care Team Providers Care Production Superintendent Hydro Name Role Phone Frannie Grace Primary Care Provider Marii Hayes MD Unavailable [phone] Encounter Details Date Type Department Care Team (Late st Contact Info) Description 11/17/2023 Vimagino Message Enc [facility] Family & Internal Medicine [facility] [address] [place] [address] Frannie Grace APNP [address] [place] [address] Urgent Social History Tobacco Use Types Packs/Day Years Used Date Smoking Tobacco: Every Day Cigarettes 1 30 Smokeless Tobacco: Never Comments:Provider to juvenile counselor Alcohol Use Standard Drinks/Week Comments No [...] Sex Assigned at Female 12/01/2024 8:03 AM RESERVE OFFICER Legal Sex Female 8:08 PM CDT Gender Identity Female 12/20/2021 12:05 PM RESERVE OFFICER Sexual Orientation Not on file 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 on file Not on file documented as of this encounter Plan of Treatment Upcoming Encounters Date Type Department Care Team (Late st Contact Info) Description 12/07/2024 8:30 AM RESERVE OFFICER Appointment [facility] [address] [place] [address] Tyree Cabrera DO 3 [facility] [address] [place] [address] 12/10/2024 8:20 AM RESERVE OFFICER Office Visit [facility] Family & Internal Medicine - [address] [address] Frannie Grace APNP [address] [place] [address] 01/10/2025 8:30 AM CDT Appointment [facility] Day Services [address] [place] [address] Tyree Cabrera DO 3 [facility] [address] [place] [address] 07/01/2025 11:00 AM CDT Office Visit [facility] Multispecialty Care - [facility] [address] [place] [address] Tyree Cabrera DO [address] [facility] [address] [place] [address] documented as of this encounter Visit Diagnoses Not on filedocumented in this encounter Additional Health Concerns Assessment Noted Time PHQ-9 Depression Total Score: 12 023 12:10 PM RESERVE OFFICER documented as of this encounter Care Teams Production Superintendent Hydro Relationship Specialty Start Date End Date Frannie Grace APNP [address] [place] [address] PCP - General NURSE PRACTITIONER 08/31/18 Marii Hayes MD [address] [place] [address] Christos Client Services Specialist INTERVENTIONAL CARDIOLOGY 09/03/18 documented as of this encounter
--- OUTSIDE RECORDS SUMMARY | 2024-12-06 11:12 | XMS_ITS | Encounter Summary ---
Author Organization [facility] Address [facility] [place] [address] Care Team Providers Care Improvement Manager Name Role Phone Frannie Grace Ignacia MTZ Primary Care Provider [phone] Marii Hayes MD Unavailable [phone] Encounter Details Date Type Department Care Team (Late st Contact Info) Description 04/23/2023 MyChart Message Enc [facility] Medical [facility] - [facility] [address] [place] [address] [employer], [facility] Provider Air Quality Message Social History Tobacco Use Types Packs/Day Years Used Date Smoking Tobacco: Every Day Cigarettes 1 30 Smokeless Tobacco: Never Comments:Provider to summer counselor Alcohol Use Standard Drinks/Week Comments No [...] Sex Assigned at Female 12/01/2024 8:03 AM IT AUDIT MANAGER Legal Sex Female 8:08 PM CDT Gender Identity Female 12/20/2021 12:05 PM IT AUDIT MANAGER Sexual Orientation Not on file 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 on file Not on file documented as of this encounter Plan of Treatment Upcoming Encounters Date Type Department Care Team (Late st Contact Info) Description 12/07/2024 8:30 AM IT AUDIT MANAGER Appointment [facility] [address] [place] [address] Tyree Cabrera DO [facility] [address] [place] [address] 12/10/2024 8:20 AM IT AUDIT MANAGER Office Visit [facility] Medical [facility] Family & Internal Medicine - [address] [address] Frannie Grace APNP [address] [place] [address] 01/10/2025 8:30 AM CDT Appointment [facility] [address] [place] [address] Tyree Cabrera DO 3 [facility] [address] [place] [address] 07/01/2025 11:00 AM CDT Office Visit [facility] Multispecialty Care - [facility] [address] [facility] [address] [place] [address] Tyree Cabrera DO [address] [facility] [address] [place] [address] documented as of this encounter Visit Diagnoses Not on filedocumented in this encounter Additional Health Concerns Assessment Noted Time PHQ-9 Depression Total Score: 12 023 12:10 PM IT AUDIT MANAGER documented as of this encounter Care Teams Improvement Manager Relationship Specialty Start Date End Date Frannie Grace APNP [address] [place] [address] PCP - General NURSE PRACTITIONER 08/31/18 Marii Hayes MD [address] [place] [address] Christos Electric Organ Assembler And Checker INTERVENTIONAL CARDIOLOGY 09/03/18 documented as of this encounter
--- OUTSIDE RECORDS SUMMARY | 2024-12-06 11:12 | XMS_ITS | Encounter Summary ---
Author Organization [facility] Address [address] [place] [address] Care Team Providers Care Wood Molder Name Role Phone Frannie Grace SMITH Primary Care Provider [phone] Marii Hayes MD Unavailable [phone] Encounter Details Date Type Department Care Team (Late Contact Info) Description 03/17/2024 RX Orders Only [facility] [address] [place] [address] Rayna Brannon, PharmD Social History Tobacco Use Types Packs/Day Years Used Date Smoking Tobacco: Every Day Cigarettes 0.5 31 Smokeless Tobacco: Never Comments:Provider to certified alcohol counselor Alcohol Use Standard Drinks/Week Comments No [...] Sex Assigned at Female 12/01/2024 8:03 AM VACUUM DRUM DRIER OPERATOR Legal Sex Female 8:08 PM CDT Gender Identity Female 12/20/2021 12:05 PM VACUUM DRUM DRIER OPERATOR Sexual Orientation Not on file 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 [address] [place] [address] Tyree Cabrera DO [address] [facility] [address] [place] [address] 12/10/2024 8:20 AM VACUUM DRUM DRIER OPERATOR Office Visit [facility] Medical Group Family & Internal Medicine - [address] [address] Frannie Grace APNP [address] [place] [address] 01/10/2025 8:30 AM CDT Appointment [facility] Day [facility] [address] [place] [address] Tyree Cabrera DO [address] [facility] [address] [place] [address] 07/01/2025 11:00 AM CDT Office Visit [facility] Mult[facility]pec[facility]ty [facility] - [facility] [address] [facility] [address] [place] [address] Tyree Cabrera DO [address] [facility] [address] [place] [address] documented as of this encounter Visit Diagnoses Not on filedocumented in this encounter Additional Health Concerns Assessment Noted Time PHQ-9 Depression Total Score: 12 023 12:10 PM VACUUM DRUM DRIER OPERATOR documented as of this encounter Care Teams Wood Molder Relationship Specialty Start Date End Date Frannie Grace APNP [address] [place] [address] PCP - General NURSE PRACTITIONER 08/31/18 Marii Hayes MD [address] [place] [address] Christos Plant Taxonomy Teacher INTERVENTIONAL CARDIOLOGY 09/03/18 documented as of this encounter
--- OUTSIDE RECORDS SUMMARY | 2024-12-06 11:12 | XMS_ITS | Referral Summary ---
Author Organization [facility] Address [address] [place] [address] Care Team Providers Care Business Intelligence Manager Name Role Phone rFannie Grace Primary Care Provider + Encounters Date Type Department Care Team Description 11/08/2024 7:18 AM PROJECT MANAGEMENT INTERN - 11/08/2024 11:59 PM PROJECT MANAGEMENT INTERN Hospital Encounter [address] [address] Elevated liver enzymes Discharge Disposition: Discharge to home or self care 09/27/2024 8:04 AM PROJECT MANAGEMENT INTERN - 09/27/2024 11:59 PM PROJECT MANAGEMENT INTERN Hospital Encounter [address] [address] Encounter for screening mammogram for malignant neoplasm of breast Discharge Disposition: Discharge to home or self care from Last 3 Months Allergies No known active allergies Medications atenolol [...] Morbid obesity 08/14/2017 BMI 50.0-59.9, adult 08/14/2017 Social History Tobacco Use Types Packs/Day Years [...] on file Legal Sex Female 3:42 AM PROJECT MANAGEMENT INTERN Gender Identity Not on file Sexual Orientation Not on file Last Filed Vital Signs [...] 04/13/2024 4:53 PM CDT Plan of Treatment Not on file Procedures Procedure Name Priority Date/Time Associated Diagnosis Comments US ABDOMEN LIMITED Schedule Routine, Read Routine (OP Routine) 11/08/2024 7:59 AM PROJECT MANAGEMENT INTERN Elevated liver enzymes SCREENING MAMMOGRAM BILATERAL W AURELIANO Schedule Routine, Read Routine (OP Routine) 09/27/2024 8:28 AM PROJECT MANAGEMENT INTERN Encounter for screening mammogram for malignant neoplasm of breast CT LUNG CANCER SCREENING Schedule Routine, Read Routine (OP Routine) 09/04/2023 4:17 PM PROJECT MANAGEMENT INTERN Nicotine dependence, cigarettes, uncomplicated from Last 3 Months or Most Recently Relevant to Health Maintenance Results * US Abdomen Limited (11/08/2024 7:59 AM PROJECT MANAGEMENT INTERN) Anatomical Region Laterality Modality Abdomen N/A Ultrasound 11/08/2024 12:1 2 PM PROJECT MANAGEMENT INTERN Narrative 11/08/2024 12:18 PM PROJECT MANAGEMENT INTERN EXAM DESCRIPTION: US ABDOMEN LIMITED REASON FOR [...] 12:18 PM - Electronically signed by Roberth Martinez M.D. JS: KELLY Report ID: [id number] Reading Location: [id number] Procedure Note Roberth Martinez, DO - 11/08/2024 EXAM DESCRIPTION: US ABDOMEN [...] 12:18 PM - Electronically signed by Roberth Martinez M.D. JS: KELLY Report ID: [id number] Reading Location: [place] [address] Frannie LINDER [facility] PROCEDURES Final Result * Screening Mammogram Bilateral W Aureliano (09/27/2024 8:28 AM PROJECT MANAGEMENT INTERN) Anatomical Region Laterality Modality Breast Bilateral Mammography 09/27/2024 8:55 AM PROJECT MANAGEMENT INTERN Impressions 09/27/2024 8:55 AM PROJECT MANAGEMENT INTERN No evidence of malignancy in either breast. FINAL ASSESSMENT: BI-RADS Category 1: Negative. RECOMMENDATION: Recommend return for annual screening mammogram in 12 months. Electronically signed by: Daron Palacio M.D. Narrative 09/27/2024 8:55 AM PROJECT MANAGEMENT INTERN EXAMINATION: BILATERAL SCREENING MAMMOGRAM COMPARISON: None available, baseline mammogram TECHNIQUE: Full-field 2D and digital breast tomosynthesis (DBT) images were obtained. CAD was utilized. BREAST PARENCHYMAL COMPOSITION: The breasts are almost entirely fatty. FINDINGS: There is no suspicious mass, calcification, or distortion in either breast. Frannie LINDER [facility] MAMMO PROCEDURES Fin al Result * CT Lung Cancer Screening (09/04/2023 4:17 PM PROJECT MANAGEMENT INTERN) Anatomical Region Laterality Modality Chest N/A Computed Tomogra phy 09/05/2023 6:45 AM PROJECT MANAGEMENT INTERN Narrative 09/05/2023 6:57 AM PROJECT MANAGEMENT INTERN EXAM DESCRIPTION: CT LUNG CANCER SCREENING REASON [...] Reanna Chacon M.D. TW: EFREM Report ID: [id number] Reading Location: [id number] Procedure Note Reanna Chacon MD - 09/05/2023 [...] Electronically signed by Reanna Chacon M.D. TW: TW Report ID: [id number] Reading Location: [place] [address] Tyree Cabrera DO IMG CT PROCEDURES Final Result from Last 3 Months or Most Recently Relevant to Health Maintenance Insurance [employer] [facility] PPO ANTHEM ACCESS CHOICE Care Teams Business Intelligence Manager Relationship Specialty Start Date End Date Frannie Grace PA [facility] [place], [place] [phone] PCP - General Nurse Practitioner 03/11/24
[2024-12-06 11:18] LABS: Alanine Aminotransferase 23 U/L (6-35); Albumin Level 3.9 g/dL (3.5-5.1); Alkaline Phosphatase 118 U/L (38-126); Anion Gap 9 mmol/L (4-12); Aspartate Amino Transferase 27 U/L (14-36); Bilirubin,Total 0.7 mg/dL (0.2-1.3); Blood Urea Nitrogen 10 mg/dL (7-17); Calcium 9.9 mg/dL (8.4-10.2); Carbon Dioxide 29 mmol/L (22-30); Chloride 100 mmol/L (98-107); Estimated Glomerular Filt Rate > 60; Glucose 135 mg/dL (65-110); Potassium 3.3 mmol/L (3.4-5.0); Prothrombin Time 13.7 Seconds (11.1-14.7); Sodium 138 mmol/L (137-145)
[2024-12-06 11:25] LABS: Immunoglobulin G 1064 mg/dL (700-1600)
[2024-12-06 11:28] LABS: Iron 71 ug/dL (37-170)
[2024-12-06 11:38] LABS: Percent Iron Saturation 26 % (20-50)
[2024-12-06 11:50] LABS: Hepatitis B Surface Antigen Negative (Negative)
[2024-12-06 11:56] LABS: HAV RESULT Negative (Negative); Hepatitis B Core IgM Result Negative (Negative)
[2024-12-06 12:07] LABS: Hepatitis B Surface Anti Res Negative; Hepatitis C Virus Antibody Negative (Negative)
[2024-12-07 08:53] LABS: Hepatitis A Antibody Total REACTIVE (NON-REACTIVE); Hepatitis B Core Ab Total NON-REACTIVE (NON-REACTIVE)
[2024-12-07 09:13] LABS: Alpha-1-Antitrypsin, QN 179 mg/dL (83-199); Ceruloplasmin 37 mg/dL (14-48)
[2024-12-08 12:54] LABS: Anti Nuclear Antibody Pattern Nuclear, Homogeneous; Anti Nuclear Antibody Titer 1:40 titer
[2024-12-08 15:34] LABS: Immunoglobulin A 564 mg/dL (47-310); TTG IGA AB 5.9 U/mL
[2024-12-09 12:20] LABS: Actin Antibody (IgG) <20 U (<20); LKM 1 Antibody <=20.0 U (<=20.0)
== END 2024-12-06 10:22 | disposition home or self-care (01) ==
PROVIDERS: PCP Registered Nurse; Visit Provider Nurse Practitioner
DX: K76.0 Fatty (change of) liver, not elsewhere classified (principal); K74.60 Unspecified cirrhosis of liver
CPT/HCPCS: 36415; 80053; 80074; 81596; 82103; 82248; 82390; 82728; 82784; 83520; 83540; 83550; 85027; 85610; 86038; 86039; 86364; 86376; 86704; 86706; 86708

== ENCOUNTER 2025-05-16 09:14 | Outpatient (CLI) | payer BC, SELFPAY ==
--- OUTSIDE RECORDS SUMMARY | 2025-05-16 09:19 | XMS_ITS | Referral Summary ---
Author Organization [facility] Address [address] [place] [address] Care Team Providers Care Railcar Carpenter Name Role Phone Frannie Grace Primary Care [...] on file Legal Sex Female 3:42 AM SLOT EDITOR Gender Identity Not on file Sexual Orientation [...] 4:53 PM CDT Height 175.3 cm (5' 9) 04/13/2024 4:53 PM CDT Body Mass Index 60.55 04/13/2024 4:53 PM CDT Plan of Treatment Not on file Procedures Procedure Name Priority Date/Time Associated Diagnosis Comments SCREENING MAMMOGRAM BILATERAL W AURELIANO Schedule Routine, Read Routine (OP Routine) 09/27/2024 8:28 AM SLOT EDITOR Encounter for screening mammogram for malignant neoplasm of breast CT LUNG CANCER SCREENING Schedule Routine, Read Routine (OP Routine) 09/04/2023 4:17 PM SLOT EDITOR Nicotine dependence, cigarettes, uncomplicated from Last 3 Months or Most Recently Relevant to Health Maintenance Results * Screening Mammogram Bilateral W Aureliano (09/27/2024 8:28 AM SLOT EDITOR) Anatomical Region Laterality Modality Breast Bilateral Mammography 09/27/2024 8:55 AM SLOT EDITOR Impressions 09/27/2024 8:55 AM SLOT EDITOR No evidence of malignancy in either breast. FINAL ASSESSMENT: BI-RADS Category 1: Negative. RECOMMENDATION: Recommend return for annual screening mammogram in 12 months. Electronically signed by: Daron Palacio M.D. Narrative 09/27/2024 8:55 AM SLOT EDITOR EXAMINATION: BILATERAL SCREENING MAMMOGRAM COMPARISON: None available, baseline mammogram TECHNIQUE: Full-field 2D and digital breast tomosynthesis (DBT) images were obtained. CAD was utilized. BREAST PARENCHYMAL COMPOSITION: The breasts are almost entirely fatty. FINDINGS: There is no suspicious mass, calcification, or distortion in either breast. Frannie LINDER IMG MAMMO PROCEDURES [facility] Result * CT Lung Cancer Screening (09/04/2023 4:17 PM SLOT EDITOR) Anatomical Region Laterality Modality Chest N/A Computed Tomogra phy 09/05/2023 6:45 AM SLOT EDITOR Narrative 09/05/2023 6:57 AM SLOT EDITOR EXAM DESCRIPTION: CT LUNG CANCER SCREENING REASON [...] 1.3 cm short axis. Evaluation of the kayalh very limited on this examination. There is [...] Reanna Chacon M.D. TW: TW Report ID: [id number] Reading Location: [id number] Procedure Note Reanna Chacon MD - 09/05/2023 [...] Reanna Chacon M.D. TW: EFREM Report ID: [id number] Reading Location: [id number] Tyree Cabrera DO IMG CT PROCEDURES Final Result from Last 3 Months or Most Recently Relevant to Health Maintenance [facility] ANTHEM ACCESS CHOICE Care Teams Railcar Carpenter Relationship Specialty Start Date End Date Frannie Grace PA [address] [place] [address] PCP - General Nurse Practitioner 03/11/24
--- OUTSIDE RECORDS SUMMARY | 2025-05-16 09:19 | XMS_ITS | Clinical Summary ---
Author Organization [facility] Address [address] [place] [address] Phone Care Team Providers Care Wholesale Account Manager Name Role Phone Provider, Not On File [...] Cervical Cancer Screening (CCS) 2003 HPV/Cotest 2003 Cologuard 2018 Colonoscopy 2018 Colorectal Cancer Screening 2018 Immunochemical Fecal Occult Blood 2018 Pneumococcal Immunization (5 0+ years) (1 of 1 - PCV) 2023 Zoster Immunization (1 of 2) 2023 SARS-COV-2 Immunization (1 - 2023- season) 2024 Influenza Immunization (#1) 2025 Respiratory Syncytial Virus (RSV) Immunization (Adult) (1 - 1-dose 75+ series) 2048 Human Papillomavirus (HPV) Immunization Aged Out No longer eligible b ased on patient's age to complete this topic Meningococcal Immunization (ACWY) Aged Out No longer eligible based on patient's age to complete this topic Rotavirus Immunization Aged Out No lo nger eligible based on patient's age to complete this topic Care Teams Wholesale Account Manager Relationship Specialty Start Date End Date Provider, Not On File [place] PCP - General 01/15/18
--- OUTSIDE RECORDS SUMMARY | 2025-05-16 09:19 | XMS_ITS | Clinical Summary ---
Author Organization [facility] Address [address] [place] [address] Care Team Providers Care Manager Pest Name Role Phone Frannie Grace Primary Care [...] Morbid obesity 08/14/2017 BMI 50.0-59.9, adult 08/14/2017 Surgical History Surgery Date Site/Laterality Comments COMBINED [...] on file Legal Sex Female 3:42 AM TANK PUMPER Gender Identity Not on file Sexual Orientation [...] Lung Cancer Screening 12/03/2023 09/04/2023 Influenza Vaccine (Season Ended) 2025 Lipid Panel 09/10/2025 09/10/2024 Breast Cancer Screening-Mammogram 09/27/2025 024 DTaP/Tdap/Td Vaccine (5 - Td or Tdap) 05/17/2031 05/17/2021, 01/10/1994, 11/07/1993, Additional history exists Hepatitis B Screening Completed 09/24/1993, 993 Pneumococcal vaccine <65 Completed 08/14/2022 Procedures Procedure Name Priority Date/Time Associated Diagnosis Comments SCREENING MAMMOGRAM BILATERAL W AURELIANO Schedule Routine, Read Routine (OP Routine) 09/27/2024 8:28 AM TANK PUMPER Encounter for screening mammogram for malignant neoplasm of breast CT LUNG CANCER SCREENING Schedule Routine, Read Routine (OP Routine) 09/04/2023 4:17 PM TANK PUMPER Nicotine dependence, cigarettes, uncomplicated from Last 3 Months or Most Recently Relevant to Health Maintenance Results * Screening Mammogram Bilateral W Aureliano (09/27/2024 8:28 AM TANK PUMPER) Anatomical Region Laterality Modality Breast Bilateral Mammography 09/27/2024 8:55 AM TANK PUMPER Impressions 09/27/2024 8:55 AM TANK PUMPER No evidence of malignancy in either breast. FINAL ASSESSMENT: BI-RADS Category 1: Negative. RECOMMENDATION: Recommend return for annual screening mammogram in 12 months. Electronically signed by: Daron Palacio M.D. Narrative 09/27/2024 8:55 AM TANK PUMPER EXAMINATION: BILATERAL SCREENING MAMMOGRAM COMPARISON: None available, baseline mammogram TECHNIQUE: Full-field 2D and digital breast tomosynthesis (DBT) images were obtained. CAD was utilized. BREAST PARENCHYMAL COMPOSITION: The breasts are almost entirely fatty. FINDINGS: There is no suspicious mass, calcification, or distortion in either breast. Frannie LINDER [facility]ED[facility] Fin al Result * CT Lung Cancer Screening (09/04/2023 4:17 PM TANK PUMPER) Anatomical Region Laterality Modality Chest N/A Computed Tomogra phy 09/05/2023 6:45 AM TANK PUMPER Narrative 09/05/2023 6:57 AM TANK PUMPER EXAM DESCRIPTION: CT LUNG CANCER SCREENING REASON [...] Reanna Chacon M.D. TW: TW Report ID: [id number] Reading Location: [id number] Procedure Note Reanna Chacon MD - 09/05/2023 [...] Reanna Chacon M.D. TW: EFREM Report ID: [id number] Reading Location: [place] [address] Tyree Cabrera DO IMG CT PROCEDURES Final Result from Last 3 Months or Most Recently Relevant to Health Maintenance Insurance [employer] [facility] PPO ANTHEM ACCESS CHOICE Member Subscriber Plan / Payer (Ef fective 2023-Present) Name:Mallory Beaver Relation to Subscriber:Spouse Name:Sd Justin Date of :1978 Address: [address] [place] [phone] Payer ID:[id number] (NAIC) Type:[employer] Address: [phone] [place] [phone] Care Teams Manager Pest Relationship Specialty Start Date End Date Frannie Grace PA [facility] [place] [address] PCP - General Nurse Practitioner 03/11/24
[2025-05-16 09:51] LABS: Hematocrit 47.5 % (37.0-47.0); Hemoglobin 15.5 g/dL (12.0-15.0); Mean Corpuscular HGB Conc 32.6 g/dl (32-36); Mean Corpuscular Hemoglobin 29.8 pg (26-34); Mean Corpuscular Volume 91.3 fl (80-100); Platelet Count Result 310 k/mm3 (150-375); Red Blood Count 5.20 M/mm3 (4.2-5.4); White Blood Count 12.4 K/mm3 (4.5-10.0)
[2025-05-16 10:04] LABS: INR 1.0; Prothrombin Time 13.0 Seconds (11.1-14.7)
[2025-05-16 10:24] LABS: Alanine Aminotransferase 16 U/L (6-35); Albumin Level 3.9 g/dL (3.5-5.1); Alkaline Phosphatase 101 U/L (38-126); Anion Gap 6 mmol/L (4-12); Aspartate Amino Transferase 23 U/L (14-36); Bilirubin,Total 0.6 mg/dL (0.2-1.3); Blood Urea Nitrogen 12 mg/dL (7-17); Calcium 10.1 mg/dL (8.4-10.2); Carbon Dioxide 31 mmol/L (22-30); Chloride 98 mmol/L (98-107); Estimated Glomerular Filt Rate > 60; Glucose 126 mg/dL (65-110); Potassium 3.2 mmol/L (3.4-5.0); Sodium 135 mmol/L (137-145); Total Protein 7.6 g/dL (6.3-8.2)
== END 2025-05-16 09:15 | disposition home or self-care (01) ==
LOC: ANHLAB 09:15
PROVIDERS: PCP Registered Nurse; Visit Provider Nurse Practitioner
DX: K75.81 Nonalcoholic steatohepatitis (NASH) (principal)
CPT/HCPCS: 36415; 80053; 85027; 85610